=== PATIENT | female | born 1955 | race Caucasian/White ===

== ENCOUNTER → 2017-05-26 | Outpatient (CLI) | payer OTHER ==
[~2017-05-26] MED LIST: AMITRYPTYLINE PO; ASPIRIN81 M1 PO; BIDIL PO; COLACE PO; FAMOTIDINE20 M1 PO; FISH OIL 1,0001 EACH PO; FUROSEMIDE40 MG PO; HYDROCODON-ACE1 EAC4 PO; LOPID600 MG PO; METOPROLOL TAR25 MG PO; MICRO-K10 MEQ PO; MULTI-VITAMIN1 EAC1 PO; NIACIN500 M2 PO; PLAVIX PO; PRINIVIL5 MG PO; ZOLOFT100 MG PO
--- NOTE | ~2017-05-26 | CR181 ---
[facility] A Service of [facility] & [facility] / [facility] RADIOLOGY TEXT RESULTS PATIENT: PEARL GREWAL LOCATION: [facility] : 53 UNIT #: [id number] AGE: [address]: DIVYA KNIGHT SEX: F ORDER DR: [id number] [facility]. [place], [place] [address] [id number] O MR#: [id number] Acc #: [id number] NAME: PEARL GREWAL : 1955 SEX: F STUDY DATE/TIME: 05/26/2017 12:47 UNIT: [facility] ROOM: STUDY DESCRIPTION: CR Lumbar Spine 2 or 3 Views Attending Physician: Divya Knight Referring Physician: Divya Knight Ordering Physician: Physician Non-Staff Primary Care Physician: Fredi Kaminski M.D. MEDICAL IMAGING REPORT This report is preliminary unless electronic signature is present EXAM Lumbar series 05/26/2017 INDICATIONS 61-year-old female presenting for flexion and extension views of the lumbar spine secondary to lumbar pain and degenerative disc disease. Symptoms for years. TECHNIQUE Flexion/extension views and neutral positioning of the lumbar spine performed and compared with 03/07/2014 FINDINGS There is antegrade listhesis of L4 on L5 grade 1 in degree in the neutral position. There is degenerative disc disease at L3-4, L4-5 and L5-S1. There is facet arthropathy in the lower lumbar levels. Moderately severe at L4-5 and L5-S1. With flexion and extension, there is minimal subluxation at L4-5 with flexion. The greatest antegrade listhesis on flexion at L4-5 measures about 7 mm compared with a 4 mm in the neutral position. There is atherosclerotic change of the aorta. No compression fracture. IMPRESSION 1. Degenerative change in the lumbar spine related to degenerative disc disease and facet arthropathy. Grade 1 antegrade listhesis of L4 on L5 measures 4 mm in the neutral position increased slightly to 7 mm on flexion. Dictated by... Min Black M.D. THIS IS AN ELECTRONICALLY VERIFIED REPORT [facility] A Service of [facility] & [facility] RADIOLOGY TEXT RESULTS PATIENT: PEARL GREWAL LOCATION: [facility] [place] #: [id number] : 53 UNIT #: [id number] AGE: [address]: DIVYA KNIGHT SEX: F ORDER DR: Min Black M.D. at 05/27/2017 1:51 PM SHRAVAN/capri TD: 05/27/2017 08:30 JOB #: [id number] MEDICAL IMAGING REPORT Page 1 of 1 COPY
== END | disposition home or self-care (01) ==
LOC: CRAD 12:18
DX: M51.36 Other intervertebral disc degeneration, lumbar region (principal); M47.896 Other spondylosis, lumbar region; M46.96 Unspecified inflammatory spondylopathy, lumbar region; M43.16 Spondylolisthesis, lumbar region
CPT/HCPCS: 72100